=== PATIENT | male | born 1965 | race African-American/Black ===

== ENCOUNTER 2020-01-21 17:37 | Inpatient (IN) | payer OTHER, MEDICAID ==
[~2020-01-21] VITALS: Ht 172.7 cm; Wt 135.6 kg
[2020-01-21] MEDS ORDERED: ACETAMINOPHEN 325MG TABLET PO STA (20:10)
[2020-01-21] MEDS ORDERED: ASPIRIN 81MG TABLET PO ONE (20:15)
[2020-01-21] MEDS ORDERED: LEVOFLOXACIN 750MG PREMIX 150 ML IV ONE (20:15)
[2020-01-21 20:53] LABS: CLARITY URINE CLEAR (CLEAR); COLOR URINE YELLOW (YELLOW); KETONES URINE NEGATIVE (NEGATIVE); LEUKOCYTE ESTERASE URINE NEGATIVE (NEGATIVE); NITRITE URINE NEGATIVE (NEGATIVE); OCCULT BLOOD URINE NEGATIVE (NEGATIVE); PROTEIN URINE 1+ (NEGATIVE); SPECIFIC GRAVITY URINE 1.014 (1.005-1.030); UROBILINOGEN URINE 0.2 E.U./dL (0.2-1.0)
[2020-01-21 20:55] LABS: HEMATOCRIT. 28.4 % (42.0-52.0); HEMOGLOBIN. 8.7 g/dL (14.0-18.0); MEAN CORPUSCULAR HEMOGLOBIN 27.7 pg (28.0-32.0); MEAN CORPUSCULAR VOLUME 90.2 fL (80.0-94.0); MEAN PLATELET VOLUME 8.4 fl (7.4-10.4); PLATELET 187 x1000/uL (130-400); RED BLOOD CELL COUNT 3.15 mill/uL (4.7-6.1); RED CELL DISTRIBUTION WIDTH 19.2 % (11.6-14.6)
[2020-01-21 21:04] LABS: CHLORIDE 106 mEq/L (98-107)
[2020-01-21 21:05] LABS: INR 1.8; PARTIAL THROMBOPLASTIN TIME 50.6 sec (23.4-31.0); PROTHROMBIN TIME 18.5 sec (9.6-11.0)
[2020-01-21 21:49] LABS: PLATELET ESTIMATE NORMAL
[2020-01-21] MEDS ORDERED: DEXAMETHASONE 10 MG/ML VIAL IV ONE (23:30)
[2020-01-22] MEDS ORDERED: GUAIFENESIN 200MG/10ML SUGAR FREE UDC PO PRN (01:45)
[2020-01-22] MEDS ORDERED: MAGNESIUM/ALUMINUM HYDROXIDE/SIMETHICONE 30ML UDC PO PRN (01:45)
[2020-01-22] MEDS ORDERED: ACETAMINOPHEN 325MG TABLET PO PRN (01:45)
[2020-01-22] MEDS ORDERED: HYDROCODONE/ACETAMINOPHEN 5/325MG TABLET PO PRN (01:45)
[2020-01-22] MEDS ORDERED: DOCUSATE SODIUM 100MG CAPSULE PO PRN (01:45)
[2020-01-22] MEDS ORDERED: MORPHINE SULFATE 2 MG/ML CPJ (NOT FOR IM USE) IV PRN (01:45)
[2020-01-22] MEDS ORDERED: CLONIDINE 0.1MG TABLET PO PRN (01:45)
[2020-01-22] MEDS ORDERED: IPRATROPIUM/ALBUTEROL 0.5-3(2.5)MG/3ML NEB NEB PRN (01:45)
[2020-01-22] MEDS ORDERED: ONDANSETRON HCL 4MG/2ML INJ IV PRN (01:45)
[2020-01-22 06:22] LABS: CREATINE KINASE MB FRACTION 1.3 ng/mL (0.5-3.6)
[2020-01-22] MEDS: FUROSEMIDE 40MG/4ML VIAL IV SCH (09:00)
[2020-01-22 09:02] LABS: T4 FREE 0.89 ng/dL (0.76-1.46)
[2020-01-22 11:45] VITALS: BP 139/72
[2020-01-22 12:00] VITALS: BP 102/54
[2020-01-22 16:00] VITALS: BP 118/72
[2020-01-22 16:34] LABS: CREATINE KINASE 74 IU/L (39-308)
[2020-01-22 16:35] LABS: CREATINE KINASE MB FRACTION 1.9 ng/mL (0.5-3.6)
[2020-01-22 20:00] VITALS: BP 137/43
[2020-01-22] MEDS ORDERED: LEVOFLOXACIN 500MG PREMIX 100 ML IV SCH (21:00)
[2020-01-22] MEDS: ENOXAPARIN 40MG/0.4ML SYR SUBCUT SCH (23:33)
[2020-01-23 00:44] VITALS: BP 109/55
[2020-01-23] MEDS ORDERED: LEVOFLOXACIN 500MG PREMIX 100 ML IV SCH ×2 (01:00→21:00)
[2020-01-23 04:00] VITALS: BP 129/71
[2020-01-23] MEDS ORDERED: HALOPERIDOL LACTATE 5MG/ML VIAL IM NR (06:38)
[2020-01-23 07:57] LABS: HEMATOCRIT. 29.1 % (42.0-52.0); HEMOGLOBIN. 8.6 g/dL (14.0-18.0); MEAN CORPUSCULAR HEMOGLOBIN 27.4 pg (28.0-32.0); MEAN CORPUSCULAR VOLUME 92.1 fL (80.0-94.0); PLATELET 172 x1000/uL (130-400); RED BLOOD CELL COUNT 3.16 mill/uL (4.7-6.1); RED CELL DISTRIBUTION WIDTH 19.1 % (11.6-14.6)
[2020-01-23 08:00] VITALS: BP 103/52
[2020-01-23 08:14] LABS: CHLORIDE 104 mEq/L (98-107)
[2020-01-23 08:28] LABS: LDL CHOLESTEROL 39 mg/dL (5-100)
[2020-01-23 08:30] LABS: HDL CHOLESTEROL 47 mg/dL (40-59)
[2020-01-23 08:38] LABS: PLATELET ESTIMATE NORMAL
[2020-01-23] MEDS: FUROSEMIDE 40MG/4ML VIAL IV SCH (09:58)
[2020-01-23] MEDS: ENOXAPARIN 40MG/0.4ML SYR SUBCUT SCH (09:58)
[2020-01-23] MEDS ORDERED: SODIUM POLYSTYRENE SULFONATE 15 G/60 ML BOT PO NR (12:00)
== END 2020-01-23 13:15 | disposition left against medical advice (07) | DRG 291 ==
LOC: ER 17:37 → 7WST 22:40 → EDBEDREQ 22:43 → EDBEDREQTM 22:43 → ENRESERV 01-22 10:28 → 7EST 01-22 11:59
PROVIDERS: ADMIT Hospitalist; ATTEND Hospitalist
DX: I11.0 Hypertensive heart disease with heart failure (principal); E43 Unspecified severe protein-calorie malnutrition; N17.9 Acute kidney failure, unspecified; I50.43 Acute on chronic combined systolic (congestive) and diastolic (congestive) heart failure; E78.5 Hyperlipidemia, unspecified; I25.10 Atherosclerotic heart disease of native coronary artery without angina pectoris; E11.9 Type 2 diabetes mellitus without complications; D63.8 Anemia in other chronic diseases classified elsewhere; Z20.828 Contact with and (suspected) exposure to other viral communicable diseases; E87.5 Hyperkalemia; J44.9 Chronic obstructive pulmonary disease, unspecified; I95.9 Hypotension, unspecified; R50.9 Fever, unspecified; I25.2 Old myocardial infarction; Z82.49 Family history of ischemic heart disease and other diseases of the circulatory system; Z78.9 Other specified health status; Z87.891 Personal history of nicotine dependence; Z88.0 Allergy status to penicillin; Z95.810 Presence of automatic (implantable) cardiac defibrillator; Z79.899 Other long term (current) drug therapy
CPT/HCPCS: 36415; 71045; 78580; 80053; 80061; 81003; 82550; 82553; 82962; 83036; 83605; 83880; 84145; 84439; 84443; 84484; 85025; 85379; 87635; 93005; 93970; 96365; 99285; J1100; J1650; J1940; J1956; J7040